=== PATIENT | male | born 1980 | race Caucasian/White ===

== ENCOUNTER → 2023-08-01 | Emergency (ER) | payer SELFPAY ==
[~2023-08-01] VITALS: Ht 185.4 cm; Wt 67.6 kg
[~2023-08-01] MED LIST: IBUP-1051 PO; IBUP-1984 PO; NO HOME MEDS
[2023-08-01 18:11] VITALS: BP 161/104; PULSE 110; RESP 18; TEMP 97.7; O2SAT 99
[2023-08-01 19:02] LABS: BASOPHILS % (AUTO) 0.1 % (0-1); EOSINOPHILS % (AUTO) 0.3 % (0-6); HEMATOCRIT 48.6 % (42.0-52.0); LYMPHOCYTES # (AUTO) 1.2 X10'3 (1.1-4.8); LYMPHOCYTES % (AUTO) 9.5 % (21-51); MEAN CORPUSCULAR HEMOGLOBIN 31.4 PG (27.0-31.0); MEAN CORPUSCULAR HGB CONC 32.9 g/dL (33.0-36.5); MEAN CORPUSCULAR VOLUME 95.5 FL (78-98); MEAN PLATELET VOLUME 9.1 FL (7.4-10.4); MONOCYTES # (AUTO) 0.3 X10'3 (0-0.9); MONOCYTES % (AUTO) 2.5 % (2-12); NEUTROPHILS # (AUTO) 10.7 X10'3 (1.8-7.7); NEUTROPHILS % (AUTO) 87.6 % (42-75); PLATELET COUNT 262 X10'3 (140-440); RED BLOOD COUNT 5.08 X10'6 (4.70-6.10); WHITE BLOOD COUNT 12.2 X10'3 (4.5-11.0)
[2023-08-01 19:16] LABS: ALANINE AMINOTRANSFERASE 110 U/L (12-78); ALBUMIN 4.2 G/DL (3.4-5.0); ALBUMIN/GLOBULIN RATIO 0.7 (1.1-1.5); ALKALINE PHOSPHATASE 168 IU/L (46-116); ANION GAP 18 (8-16); ASPARTATE AMINO TRANSFERASE 79 U/L (10-37); BILIRUBIN,TOTAL 0.7 MG/DL (0.1-1.0); BLOOD UREA NITROGEN 31 MG/DL (7-18); BUN/CREATININE RATIO 14.8 (10.0-20.0); CALCIUM 10.1 MG/DL (8.5-10.1); CHLORIDE 96 MMOL/L (99-107); CREATININE 2.09 MG/DL (0.60-1.10); LIPASE 25 U/L (16-77); POTASSIUM 4.3 MMOL/L (3.5-5.1); SODIUM 132 MMOL/L (135-145); TOTAL PROTEIN 10.2 G/DL (6.4-8.2); eCRCL 43 ML/MIN; eGFR 35 ML/MIN
[2023-08-01 19:28] LABS: GLUCOSE 302 MG/DL (70-104)
== END | disposition left against medical advice (07) ==
LOC: ER 18:09
DX: R11.10 Vomiting, unspecified (principal); Z53.21 Procedure and treatment not carried out due to patient leaving prior to being seen by health care provider
CPT/HCPCS: 36415; 80053; 83690; 85025; 99281; 99283

== ENCOUNTER → 2024-02-14 | Outpatient (CLI) | payer MEDICAID | END | disposition home or self-care (01) | LOC: RAD 09:06 | PROVIDERS: ATTEND Family Medicine | DX: K76.0 Fatty (change of) liver, not elsewhere classified (principal); B18.1 Chronic viral hepatitis B without delta-agent | CPT/HCPCS: 76705 ==

== ENCOUNTER 2025-06-24 10:30 | Emergency (ER) | payer MEDICAID ==
[~2025-06-24] VITALS: Ht 182.9 cm; Wt 70.4 kg
[2025-06-24 10:46] VITALS: TEMP 98.7
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
[2025-06-24] MEDS: TETanus/Pertussis (Acell)/Diphther VAC/PF (Tdap-Adult) 0.5ml syringe IMVAC ONE (11:11)
[2025-06-24] MEDS: LIDOcaine/epinephrine/tetracaine TOPICAL sol 3 ML syringe TOP ONE (11:13)
[2025-06-24] MEDS ORDERED: [UNRECOGNIZED DRUG - REMARK] TP (11:54)
[2025-06-24] MEDS ORDERED: SILV50CR31 TP (11:54)
[2025-06-24] MEDS ORDERED: NAPR-56 PO (11:54)
[2025-06-24] MEDS ORDERED: CEPH500C2 PO (11:54)
[2025-06-24] MEDS: silver sulfadiazine cream 50gm TP ONE (12:23)
[2025-06-24 12:46] VITALS: BP 130/87; PULSE 95; RESP 18; O2SAT 99
== END 2025-06-24 12:48 | disposition home or self-care (01) ==
LOC: ER 10:31
DX: T23.202A Burn of second degree of left hand, unspecified site, initial encounter (principal); L03.114 Cellulitis of left upper limb; T31.0 Burns involving less than 10% of body surface; F12.90 Cannabis use, unspecified, uncomplicated; Z87.891 Personal history of nicotine dependence; X58.XXXA Exposure to other specified factors, initial encounter; Y93.89 Activity, other specified; Y92.89 Other specified places as the place of occurrence of the external cause; Y99.8 Other external cause status
CPT/HCPCS: 16020; 90471; 90715; 99283; J3490; A6258; A6402